=== PATIENT | female | born 1945 | race Caucasian/White ===

== ENCOUNTER → 2016-10-09 | Outpatient (CLI) | payer MEDICARE, BC ==
[~2016-10-09] MED LIST: ACET1TAB12 PO; AMLO5TAB2 PO; CEPH-583 PO; LEVO150T68 PO
[2016-10-09 09:24] LABS: HCT - HEMATOCRIT 37.8 % (36-46); MEAN CORPUSCULAR HGB 31.5 UUG (26-34); MEAN CORPUSCULAR HGB CONC(MCHC 31.7 GM/DL (31-37); MEAN CORPUSCULAR VOLUME 99.2 UM3 (80-100); MEAN PLATELET VOLUME 9.1 UM3 (9.4-12.4); RED BLOOD COUNT 3.81 M/MM3 (4.00-5.20); WBC - WHITE BLOOD COUNT 5.7 T/MM3 (4.5-11.0)
[2016-10-09 09:33] LABS: ALBUMIN/GLOBULIN RATIO 1.2 RATIO (1.1-2.2); ALKALINE PHOSPHATASE 85 U/L (38-126); ALT (SGPT) 32 U/L (9-52); ANION GAP 11 MEQ/L (5-15); AST (SGOT) 41 U/L (14-36); BUN/CREATININE RATIO 12 RATIO (6-26); CALCIUM 9.5 MG/DL (8.4-10.2); CHLORIDE 104 MEQ/L (98-107); CO2 - CARBON DIOXIDE 29 MEQ/L (22-30); CREATININE 0.9 MG/DL (0.7-1.2); GLOMERULAR FILTRATION RATE 62; GLUCOSE 92 MG/DL (65-110); POTASSIUM 4.4 MEQ/L (3.6-5); SODIUM 144 MEQ/L (134-144); TOTAL PROTEIN 7.4 G/DL (6.3-8.2)
[2016-10-09 09:38] LABS: BASOPHILS # (MANUAL) 0.1 T/MM3 (0-0.2); EOSINOPHILS # (MANUAL) 0.3 T/MM3 (0-0.5); LYMPHOCYTES # (MANUAL) 2.4 T/MM3 (1-4.8); MONOCYTES # (MANUAL) 0.2 T/MM3 (0-0.8); NEUTROPHILS #(MANUAL)-ABSOLUTE 2.7 T/MM3 (1.8-7.7); TOTAL CELLS COUNTED 100 %
== END ==
LOC: LAB 09:04
PROVIDERS: ATTEND Internal Medicine Medical Oncology
DX: C18.2 Malignant neoplasm of ascending colon (principal)
CPT/HCPCS: 80053; 82378; 85007; 85027